=== PATIENT | male | born 1975 | race Caucasian/White ===

== ENCOUNTER 2023-05-06 22:06 | Outpatient (CLI) | payer OTHER, SELFPAY ==
[2023-05-07 18:12] LABS: Basophils # 0.1 K/mm3 (0-0.2); Basophils % 1.1 % (0.1-2.0); Eosinophils # 0.1 K/mm3 (0.0-0.4); Hemoglobin 15.3 g/dL (14.1-18.0); Lymphocytes # 0.8 K/mm3 (0.7-4.5); Lymphocytes % 9.8 % (10-50); Mean Corpuscular Hemoglobin 30.6 pg (27.0-31.2); Mean Corpuscular Volume 95.7 fl (80-94); Mean Platelet Volume 10.7 fl (7.4-10.4); Monocytes # 0.8 K/mm3 (0.1-1.0); Monocytes % 10.2 % (1.7-9.3); Neutrophils # 6.2 K/mm3 (1.8-7.8); Neutrophils % 77.9 % (37.0-80.0); Platelet Count 196 K/mm3 (142-424); Red Blood Count 5.02 M/mm3 (4.60-6.20); Red Cell Distribution Width 13.5 % (11.5-17.5); White Blood Count 7.9 K/mm3 (4.8-10.8)
[2023-05-07 18:28] LABS: Creatinine,Urine Random 114 mg/dL (Not Estab.); Microalbumin < 6.000 mg/L (0-16.7)
[2023-05-07 18:36] LABS: Alanine Aminotransferase 30 U/L (12-78); Albumin Level 3.9 g/dl (3.5-5.0); Albumin/Globulin Ratio 1.6 (1.1-1.8); Alkaline Phosphatase 93 U/L (38-126); Aspartate Amino Transferase 31 U/L (17-59); Bilirubin,Total 0.7 mg/dl (0.2-1.3); Blood Urea Nitrogen 8 mg/dl (9-20); Calcium 8.4 mg/dl (8.4-10.2); Carbon Dioxide 21 mmol/L (22.0-30.0); Chloride 106 mmol/L (98-107); Chol/HDL Ratio 4.3 (1-3.5); Cholesterol 124 mg/dl (140-200); Estimated Glomerular Filt Rate 91 ml/min (>60); GFR (African American) 110 ML/MIN (>60); Globulin 2.4 g/dL (1.3-3.2); Glucose 108 mg/dl (74-100); HDL Cholesterol 29 mg/dl (40-60); Sodium 136 mmol/L (136-145); Total Protein,Serum 6.3 g/dl (6.3-8.2); Triglycerides 134 mg/dl (30-150); VLDL Cholesterol 27 mg/dL (0-40)
[2023-05-07 18:42] LABS: Hemoglobin A1C 5.7 % (4.0-6.0)
[2023-05-07 18:47] LABS: Direct LDL Cholesterol 62.73 mg/dL (100-129)
[2023-05-07 18:57] LABS: 25-OH Vitamin D, Total 19.7 ng/mL (30-100)
[2023-05-07 19:09] LABS: Thyroid Stimulating Hormone 0.51 uIU/mL (0.465-4.68)
[2023-05-07 19:28] LABS: Vitamin B12 340 pg/mL (239-931)
== END 2023-05-06 23:59 ==
LOC: LAB.DROPOF 05-07 22:06
PROVIDERS: PCP Nurse Practitioner; Visit Provider Nurse Practitioner
DX: I25.10 Atherosclerotic heart disease of native coronary artery without angina pectoris (principal); I10 Essential (primary) hypertension; E78.5 Hyperlipidemia, unspecified; E55.9 Vitamin D deficiency, unspecified; E66.9 Obesity, unspecified; Z68.35 Body mass index [BMI] 35.0-35.9, adult; Z79.899 Other long term (current) drug therapy
CPT/HCPCS: 80053; 80061; 82043; 82306; 82570; 82607; 83036; 84443; 85025

== ENCOUNTER 2023-07-01 09:10 | Outpatient (CLI) | payer OTHER, SELFPAY ==
[2023-07-01 19:19] LABS: Basophils # 0.1 K/mm3 (0-0.2); Basophils % 0.9 % (0.1-2.0); Eosinophils # 0.3 K/mm3 (0.0-0.4); Eosinophils % 3.5 % (0.1-12.0); Hematocrit 47.2 % (42.0-52.0); Hemoglobin 15.2 g/dL (14.1-18.0); Lymphocytes # 1.8 K/mm3 (0.7-4.5); Lymphocytes % 25.9 % (10-50); Mean Corpuscular HGB Conc 32.1 g/dL (31.8-35.4); Mean Corpuscular Hemoglobin 30.7 pg (27.0-31.2); Mean Corpuscular Volume 95.7 fl (80-94); Mean Platelet Volume 10.2 fl (7.4-10.4); Monocytes # 0.4 K/mm3 (0.1-1.0); Neutrophils # 4.5 K/mm3 (1.8-7.8); Neutrophils % 63.6 % (37.0-80.0); Platelet Count 216 K/mm3 (142-424); Red Blood Count 4.93 M/mm3 (4.60-6.20); Red Cell Distribution Width 14.3 % (11.5-17.5); White Blood Count 7.1 K/mm3 (4.8-10.8)
[2023-07-01 20:22] LABS: Erythrocyte Sedimentation Rate 10 mm/hr (0-15)
[2023-07-03 13:14] LABS: Lyme Ab CIA Negative (Negative)
== END 2023-07-01 23:59 | disposition home or self-care (01) ==
LOC: LAB.DROPOF 07-02 09:10
PROVIDERS: PCP Nurse Practitioner; Visit Provider Nurse Practitioner
DX: L08.9 Local infection of the skin and subcutaneous tissue, unspecified (principal); S10.96XA Insect bite of unspecified part of neck, initial encounter; W57.XXXA Bitten or stung by nonvenomous insect and other nonvenomous arthropods, initial encounter
CPT/HCPCS: 85025; 85651; 86140; 86618

== ENCOUNTER 2023-12-24 09:00 | Outpatient (CLI) | payer OTHER, SELFPAY ==
[2023-12-27 14:24] LABS: H. pylori Stool Ag, EIA Negative (Negative)
== END 2023-12-24 23:59 | disposition home or self-care (01) ==
LOC: LAB.DROPOF 12-25 13:41
PROVIDERS: PCP Nurse Practitioner; Visit Provider Nurse Practitioner
DX: K21.9 Gastro-esophageal reflux disease without esophagitis (principal); R10.84 Generalized abdominal pain
CPT/HCPCS: 87338

== ENCOUNTER 2023-12-26 09:02 | Outpatient (CLI) | payer OTHER, SELFPAY ==
--- NOTE | 2023-12-26 09:21 | XR_ITS ---
PROCEDURE INFORMATION: Exam: XR Lumbosacral Spine Exam date and time: 12/26/2023 9:12 AM Age: 48 years old Clinical indication: Low back pain; Additional info: Left sided low back pain with left-sided sciatica TECHNIQUE: Imaging protocol: Radiologic exam of the lumbosacral spine. Views: 2 or 3 views. COMPARISON: No relevant prior studies available. FINDINGS: Bones/joints: There is no evidence of acute fracture.There is no evidence of malalignment or dislocation. Anterior osteophyte formation L1 through L4. Intervertebral disc space narrowing T11 through L 1 consistent with degenerative disc disease. Soft tissues: Unremarkable. IMPRESSION: 1. There is no evidence of acute fracture.There is no evidence of malalignment or dislocation. 2. Intervertebral disc space narrowing T11 through L 1 consistent with degenerative disc disease.
== END 2023-12-26 23:59 | disposition home or self-care (01) ==
PROVIDERS: PCP Nurse Practitioner; Visit Provider Nurse Practitioner
DX: M54.42 Lumbago with sciatica, left side (principal)
CPT/HCPCS: 72100

== ENCOUNTER 2024-03-14 10:59 | Outpatient (CLI) | payer OTHER, SELFPAY ==
[2024-03-14 18:58] LABS: Basophils # 0.1 K/mm3 (0-0.2); Basophils % 0.9 % (0.1-2.0); Eosinophils # 0.1 K/mm3 (0.0-0.4); Eosinophils % 1.8 % (0.1-12.0); Hematocrit 46.2 % (42.0-52.0); Hemoglobin 15.5 g/dL (14.1-18.0); Lymphocytes # 1.6 K/mm3 (0.7-4.5); Lymphocytes % 24.1 % (10-50); Mean Corpuscular HGB Conc 33.5 g/dL (31.8-35.4); Mean Corpuscular Hemoglobin 31.3 pg (27.0-31.2); Mean Corpuscular Volume 93.3 fl (80-94); Mean Platelet Volume 11.3 fl (7.4-10.4); Monocytes # 0.5 K/mm3 (0.1-1.0); Monocytes % 7.2 % (1.7-9.3); Neutrophils # 4.4 K/mm3 (1.8-7.8); Neutrophils % 65.7 % (37.0-80.0); Platelet Count 278 K/mm3 (142-424); Red Blood Count 4.95 M/mm3 (4.60-6.20); Red Cell Distribution Width 12.2 % (11.5-17.5); White Blood Count 6.6 K/mm3 (4.8-10.8)
[2024-03-14 19:20] LABS: Alanine Aminotransferase 34 U/L (12-78); Alkaline Phosphatase 60 U/L (38-126); Aspartate Amino Transferase 32 U/L (17-59); Bilirubin,Total 0.8 mg/dl (0.2-1.3); Blood Urea Nitrogen 11 mg/dl (9-20); Calcium 9.2 mg/dl (8.4-10.2); Chloride 106 mmol/L (98-107); Chol/HDL Ratio 7.3 (1-3.5); Cholesterol 204 mg/dl (140-200); Estimated Glomerular Filt Rate 91 ml/min (>60); GFR (African American) 110 ML/MIN (>60); Glucose 99 mg/dl (74-100); HDL Cholesterol 28 mg/dl (40-60); Potassium 4.7 mmoL/L (3.5-5.1); Sodium 139 mmol/L (136-145); Total Protein,Serum 6.9 g/dl (6.3-8.2); Triglycerides 99 mg/dl (30-150); VLDL Cholesterol 20 mg/dL (0-40)
[2024-03-14 19:31] LABS: Direct LDL Cholesterol 148.45 mg/dL (100-129)
[2024-03-14 19:34] LABS: 25-OH Vitamin D, Total 26.1 ng/mL (30-100)
[2024-03-14 19:49] LABS: Thyroid Stimulating Hormone 0.73 uIU/mL (0.465-4.68)
[2024-03-14 20:08] LABS: Vitamin B12 428 pg/mL (239-931)
[2024-03-14 20:19] LABS: Hemoglobin A1C 5.3 % (4.0-6.0)
[2024-03-14 20:52] LABS: Albumin Level 4.3 g/dl (3.5-5.0); Albumin/Globulin Ratio 1.7 (1.1-1.8); Globulin 2.6 g/dL (1.3-3.2)
[2024-03-14 21:11] LABS: Anion Gap 13.7 mEq/L (5-15); Carbon Dioxide 24 mmol/L (22.0-30.0)
[2024-03-14 21:25] LABS: Creatinine,Urine Random 126 mg/dL (Not Estab.)
== END 2024-03-14 23:59 | disposition home or self-care (01) ==
LOC: LAB.DROPOF 03-16 08:33
PROVIDERS: PCP Nurse Practitioner; Visit Provider Nurse Practitioner
DX: E78.5 Hyperlipidemia, unspecified (principal); I10 Essential (primary) hypertension; F17.210 Nicotine dependence, cigarettes, uncomplicated; E55.9 Vitamin D deficiency, unspecified; I25.10 Atherosclerotic heart disease of native coronary artery without angina pectoris; K21.9 Gastro-esophageal reflux disease without esophagitis; E66.9 Obesity, unspecified; Z68.34 Body mass index [BMI] 34.0-34.9, adult
CPT/HCPCS: 80053; 80061; 82043; 82306; 82570; 82607; 83036; 84443; 85025

== ENCOUNTER 2024-03-29 13:35 | Outpatient (CLI) | payer OTHER, SELFPAY ==
--- NOTE | 2024-03-29 13:36 | MR_ITS ---
FINAL REPORT CLINICAL HISTORY: lumbar and thoracic degenerative changes, LBP lower back pain to hips pt stated locks up walking long periods and lifting anything makes it worse x few years COMPARISON: None FINDINGS: Multiplanar MR imaging of the lumbar spine was performed without contrast. On the sagittal T2-weighted images, there is abnormal decreased signal at the L3-4 disc level. The vertebrae are of normal height. The vertebral alignment is normal. T12-L1: There is no significant canal stenosis or neuroforaminal narrowing. L1-2: There is no significant canal stenosis or neural foraminal narrowing. L2-3: There is no significant canal stenosis or neural foraminal narrowing. L3-4: Mild to moderate diffuse disc bulge. Mild to moderate bilateral neuroforaminal narrowing. L4-5: Mild diffuse disc bulge. Mild bilateral neuroforaminal narrowing. L5-S1: There is no significant canal stenosis or neural foraminal narrowing. IMPRESSION: Mild to moderate disc bulge and bilateral neuroforaminal narrowing at L3-4. Reviewed, Interpreted and Dictated by Davonte Zhou MD Transcribed by Carmencita Mtz Authenticated and [facility]
== END 2024-03-29 23:59 | disposition home or self-care (01) ==
LOC: RAD 13:36
PROVIDERS: PCP Nurse Practitioner; Visit Provider Nurse Practitioner
DX: M51.369 Other intervertebral disc degeneration, lumbar region without mention of lumbar back pain or lower extremity pain (principal); M51.34 Other intervertebral disc degeneration, thoracic region
CPT/HCPCS: 72148

== ENCOUNTER 2024-05-04 08:30 | Outpatient (POV) | payer OTHER, SELFPAY ==
[2024-05-04 08:53] VITALS: BP 160/87; PULSE 83; RESP 18; O2SAT 98; BMI 34.7
--- NOTE | 2024-05-04 09:41 | A.OFFVIS_ITS ---
HPI Data of Consult Patient: new to practice Consult date: 05/04/24 Requesting Physician: Dorene Richards APRN Primary Care Provider: Referral Provider, MD Consult Narrative Reason for consult: Low back pain, bilateral hip pain, leg numbness tingling History of present illness: Mr. Cardoza is a 48 year old male who presents today as a new patient. He is a referral from [facility]. Today he rates his pain a 10 out of 10. Patient states he has had chronic low back pain that does radiate into his hips and upper legs with numbness for longer than 10 years. He states initially a lot of his pain is related to an injury he suffered back in 2007 where a industrial mower flipped over onto himself. Patient states that he has had issues ever since. He describes this pain as a sharp sensation with the numbness into his legs. Patient states prolonged positions such as sitting or standing seem to make everything worse. He does state that the only thing that seems to make it a little bit better is laying in the position. He has tried oral medication, heat and ice, topicals, multiple muscle relaxer such as Flexeril and Robaxin with minimal relief. He states that he did see a surgeon who was recommending physical therapy however he has not gotten this officially ordered. Patient states he saw someone at [facility]. Patient is interested in any help we may be able to provide. He denies any prior back surgery or injection history. His Maxime has been reviewed. CC: Dorene Richards APRN [facility] Disclaimer: The information contained in this section may have been updated after the patient was seen, as this information can be updated by other users. Medical History (Updated 05/04/24 @ 09:44 by Dorene Richards APRN) Thoracic degenerative disc disease Bilateral low back pain with bilateral sciatica Lumbar degenerative disc disease History of seizure Left-sided low back pain with left-sided sciatica Generalized abdominal pain GERD (gastroesophageal reflux disease) Infected tick bite of neck Vitamin D deficiency Obesity Essential hypertension SOBOE (shortness of breath on exertion) Chest pain CAD (coronary artery disease) Chronic diarrhea Family history of colorectal cancer Hx of traumatic brain injury History of seizure disorder Hyperlipidemia Hypertension Surgical History Hx of cholecystectomy Family History Other Cancer Coronary artery disease Diabetes Hyperlipidemia Hypertension Social History (Updated 05/04/24 @ 08:58 by Lyly Ghotra RN) Smoking Status: Current every day smoker tobacco type: cigarettes alcohol intake: former current occupational status: employed Travel in the last 8 weeks: None Review of Systems Review of Systems Review of systems:: pertinent systems reviewed and negative unless documented below Review of systems (narrative): Review of Systems: General: No recent weight changes, no fever, no sleep disturbances Respiratory: No cough, no shortness of air, no recurring pulmonary infections Cardiovascular/peripheral vascular: No chest pain, no palpitations, no edema, no shortness of breath Gastrointestinal: No new onset incontinence, normal bowel movements reported Genitourinary: No new onset incontinence Musculoskeletal: Low back pain, Bilateral hip pain, upper leg numbness tingling Psychiatric: [Normal mood/affect] Neurological: [Denies weakness in extremities], [denies balance issues] Meds Home Medications and Allergies Home Medications ?Medication ?Instructions ?Recorded ?Confirmed ?Type albuterol sulfate 90 mcg/actuation 2 puff inhalation Q4-6H PRN 03/14/24 05/04/24 Rx aerosol inhaler shortness of breath or wheezing #8.5 grams amlodipine 5 mg tablet 5 mg PO DAILY #90 tabs 03/14/24 05/04/24 Rx cholecalciferol (vitamin D3) 125 125 mcg PO DAILY #30 tabs 03/14/24 05/04/24 Rx mcg (5,000 unit) tablet clonidine HCl 0.1 mg tablet 0.1 mg PO DAILY #180 tabs 03/14/24 05/04/24 Rx diclofenac sodium 75 mg 75 mg PO BID #60 tabs 03/14/24 05/04/24 Rx tablet,delayed release hyoscyamine sulfate 0.125 mg tablet 0.125 mg PO QID PRN diarrhea or 03/14/24 05/04/24 Rx abdominal cramping #90 tabs levetiracetam 500 mg tablet 500 mg PO BID #180 tabs 03/14/24 05/04/24 Rx methocarbamol 750 mg tablet 750 mg PO QID #120 tabs 03/14/24 05/04/24 Rx metoprolol succinate 100 mg 100 mg PO DAILY #90 tabs 03/14/24 05/04/24 Rx tablet,extended release 24 hr omeprazole 40 mg capsule,delayed 40 mg PO DAILY #90 caps 03/14/24 05/04/24 Rx release atorvastatin 40 mg tablet 40 mg PO DAILY #90 tabs 03/22/24 05/04/24 Rx cefdinir 300 mg capsule 300 mg PO BID 10 days #20 caps 04/15/24 05/04/24 Rx New Prescriptions to Start Prescriptions: Allergies Allergy/AdvReac Type Severity Reaction Status Date / Time codeine Allergy Mild Verified 03/14/24 09:55 Penicillins Allergy Mild Verified 03/14/24 09:55 Objective Vital signs: Pulse Resp BP Pulse Ox O2 Del Method 83 18 160/87 H 98 Room Air 05/04/24 08:53 05/04/24 08:53 05/04/24 08:53 05/04/24 08:53 05/04/24 08:53 Narrative: Physical Exam: General: Alert and oriented x3, no acute distress, pleasant and cooperative Lungs: Respirations even and unlabored, symmetrical chest expansion Eyes: PERRL Musculoskeletal: Flexion and extension of lumbar [spine] somewhat guarded secondary to pain, [antalgic gait noted] point tenderness along bilateral SIs w ith positive bilateral Loreto's, Francisco's, Gaenslen's, compression and distraction exam Neurological: Speech clear, no gross sensory deficit Additional findings Additional findings: FINDINGS: Multiplanar MR imaging of the lumbar spine was performed without contrast. On the sagittal T2-weighted images, there is abnormal decreased signal at the L3-4 disc level. The vertebrae are of normal height. The vertebral alignment is normal. T12-L1: There is no significant canal stenosis or neuroforaminal narrowing. L1-2: There is no significant canal stenosis or neural foraminal narrowing. L2-3: There is no significant canal stenosis or neural foraminal narrowing. L3-4: Mild to moderate diffuse disc bulge. Mild to moderate bilateral neuroforaminal narrowing. L4-5: Mild diffuse disc bulge. Mild bilateral neuroforaminal narrowing. L5-S1: There is no significant canal stenosis or neural foraminal narrowing. IMPRESSION: Mild to moderate disc bulge and bilateral neuroforaminal narrowing at L3-4. Reviewed, Interpreted and Dictated by Davonte hZou MD Transcribed by Carmencita Mtz Authenticated and [facility] Assessment and Plan *Assessment and plan (1) Bilateral low back pain with bilateral sciatica: Status: Acute Category: Medical Code(s): M54.42 - Lumbago with sciatica, left side; M54.41 - Lumbago with sciatica, right side (2) Lumbar degenerative disc disease: Status: Acute Category: Medical Code(s): M51.369 - Other intervertebral disc degeneration, lumbar region without mention of lumbar back pain or lower extremity pain (3) Bilateral sacroiliitis: Status: Acute Category: Medical Code(s): M46.1 - Sacroiliitis, not elsewhere classified Plan Patient is experiencing worsening pain along the low back and bilateral hips. They did have limited range of motion of the lumbar spine along with point tenderness along bilateral SI joints and a positive bilateral Loreto's, Francisco's, Gaenslen's, compression and distraction exam. I did discuss with the patient that I do believe they would benefit from bilateral SI injections. Risk and benefits were discussed with the patient and and he does state that he has a issue with needles and does not necessarily want to proceed forward with this option at this time. Patient has tried and failed conservative therapy including continued at home stretching exercise for longer than 12 weeks. I will order the patient a compounded cream and order physical therapy. Patient will return to clinic in 1 month. Patient has been instructed to contact the clinic with any concerns before the next appointment. Dr. Cazares has reviewed this note and agrees with this plan of care. This note was dictated using voice recognition software and make contain errors or omissions. All injections are used with Lidocaine or Bupivacaine and Depo Medrol.
== END 2024-05-04 23:59 | disposition home or self-care (01) ==
PROVIDERS: Visit Provider Nurse Practitioner Family
DX: M54.42 Lumbago with sciatica, left side (principal); M54.41 Lumbago with sciatica, right side; M51.369 Other intervertebral disc degeneration, lumbar region without mention of lumbar back pain or lower extremity pain; M46.1 Sacroiliitis, not elsewhere classified; F17.210 Nicotine dependence, cigarettes, uncomplicated
CPT/HCPCS: 99202; G0463

== ENCOUNTER 2024-06-20 12:25 | Outpatient (CLI) | payer OTHER, SELFPAY ==
[2024-06-20 20:11] LABS: Albumin Level 4.2 g/dl (3.5-5.0); Chloride 109 mmol/L (98-107); Potassium 4.5 mmoL/L (3.5-5.1); Sodium 140 mmol/L (136-145)
[2024-06-20 20:13] LABS: Blood Urea Nitrogen 10 mg/dl (9-20); Estimated Glomerular Filt Rate 104 ml/min (>60); GFR (African American) 126 ML/MIN (>60)
[2024-06-20 20:14] LABS: Alanine Aminotransferase 37 U/L (12-78); Albumin/Globulin Ratio 1.6 (1.1-1.8); Alkaline Phosphatase 67 U/L (38-126); Anion Gap 10.5 mEq/L (5-15); Aspartate Amino Transferase 27 U/L (17-59); Bilirubin,Total 0.5 mg/dl (0.2-1.3); Calcium 8.8 mg/dl (8.4-10.2); Carbon Dioxide 25 mmol/L (22.0-30.0); Chol/HDL Ratio 4.4 (1-3.5); Cholesterol 239 mg/dl (140-200); Globulin 2.6 g/dL (1.3-3.2); Glucose 90 mg/dl (74-100); HDL Cholesterol 54 mg/dl (40-60); Total Protein,Serum 6.8 g/dl (6.3-8.2); Triglycerides 161 mg/dl (30-150); VLDL Cholesterol 32 mg/dL (0-40)
[2024-06-20 20:25] LABS: Direct LDL Cholesterol 135.27 mg/dL (100-129)
[2024-06-20 20:46] LABS: Thyroid Stimulating Hormone 1.95 uIU/mL (0.465-4.68)
[2024-06-20 21:11] LABS: Hepatitis C Ab Qual. W/ RFX NEGATIVE (Negative)
[2024-06-20 23:11] LABS: 25-OH Vitamin D, Total 17.4 ng/mL (30-100)
[2024-06-20 23:19] LABS: Hemoglobin A1C 5.2 % (4.0-6.0)
[2024-06-23 10:53] LABS: HIV Combo NEGATIVE (Negative)
== END 2024-06-20 23:59 | disposition home or self-care (01) ==
LOC: LAB.DROPOF 06-21 13:04
PROVIDERS: PCP Nurse Practitioner; Visit Provider Nurse Practitioner
DX: I10 Essential (primary) hypertension (principal); E78.5 Hyperlipidemia, unspecified; E55.9 Vitamin D deficiency, unspecified; Z13.0 Encounter for screening for diseases of the blood and blood-forming organs and certain disorders involving the immune mechanism
CPT/HCPCS: 80053; 80061; 82306; 83036; 84443; 86803; 87389

== ENCOUNTER 2024-08-04 13:58 | Outpatient (CLI) | payer OTHER, SELFPAY ==
[2024-08-04 19:42] LABS: Anion Gap 7.9 mEq/L (5-15); Blood Urea Nitrogen 10 mg/dl (9-20); Calcium 9.1 mg/dl (8.4-10.2); Carbon Dioxide 29 mmol/L (22.0-30.0); Chloride 103 mmol/L (98-107); Estimated Glomerular Filt Rate 91 ml/min (>60); GFR (African American) 110 ML/MIN (>60); Glucose 92 mg/dl (74-100); Potassium 3.9 mmoL/L (3.5-5.1); Sodium 136 mmol/L (136-145)
[2024-08-04 20:06] LABS: Hemoglobin A1C 5.4 % (4.0-6.0)
[2024-08-04 20:12] LABS: Prostate Specific Ag Screen 0.6 ng/ml (0.0-4.0)
--- OUTSIDE RECORDS SUMMARY | 2024-08-05 14:37 | XMS_ITS | Clinical Summary ---
Author Organization [employer] [facility] Address [address] [place] [id number] Phone Care Team Providers Care Color Repairer Name Role Phone Unavailable Unavailable Conditions or Problems No information available. Medications No information available. Medications Administered No information available. Allergies, Adverse Reactions, Alerts No information available. Results No information available. Plan of Care No information available. Procedures No information available. Vital Signs No information available. Immunizations No information available. Advance Directives No information available.
--- OUTSIDE RECORDS SUMMARY | 2024-08-05 14:37 | XMS_ITS | Clinical Summary ---
Author Organization [facility] Address [address] [place] [address] Phone Care Team Providers Care Supervisor Shearing Name Role Phone Cherri Mejia MA [phone] Conditions or Problems Problem Name Problem Code Onset Date Status Entry Date Provider Comment Standard Description Annotate LOW BACK PAIN (LBP) [id number] (SNOMED CT) Active Cherri Mejia MA Low back pain Medications Medication Instructions Start Date Stop Date Generic Name NDC Provider Observed no known medication s at Medications Administered No information available. Allergies, Adverse Reactions, Alerts Allergy Name Reaction Description Start Date Severity Statu s Provider CODEINE Critical Cherri perez MA PENICILLIN Critical Cherri mcmillan MA Results No information available. Plan of Care No information available. Procedures No information available. Vital Signs Date Name Value Unit Description BMI (Body Mass Index) 34.55 kg/m2 Bod y Mass Index (Ratio) Height 69 [in_us] height E&M Weight Measured 234 [lb_av] weight E& M Weight Measured 234 [lb_av] weight E& M Immunizations No information available. Advance Directives No information available.
--- OUTSIDE RECORDS SUMMARY | 2024-08-05 14:37 | XMS_ITS | Clinical Summary ---
Author Organization [facility] Address [address] [place] [address] Phone Care Team Providers Care Claims Customer Service Representative Name Role Phone LuxLashae Phillip BLAKE Primary Care Provider [phone] Allergies Active Allergy Reactions Criticality Noted Date Comments Codeine Nausea And Vomiting, Other (See Comments) Low 09/14/2009 agitation Penicillins Nausea And Vomiting, Other (See Comments) Low 09/14/2009 hallucinations Medications * This document contains information received from the source organization and may not represent a complete record from that organization. aspirin 81 mg Oral Tablet, Chewable Take 81 mg by mouth daily. Active omeprazole (PRILOSEC) 40 mg Oral Capsule, Delayed Release(E.C.)Socorro cations:Atypical chest pain Take 1 Cap by mouth daily. 30 Cap 2 1 Active rimegepant (NURTEC ODT) 75 mg Oral Tablet, Rapid DissolveIndicatio ns:Migraine without aura and without status migrainosus, not intractable Take 1 Tablet by mouth as needed. 10 Tablet 3 Active rOPINIRole (REQUIP) 1 mg Oral TabletIndications :Muscle cramping Take 1 Tablet by mouth nightly. 30 Tablet 11 3 Active rimegepant (NURTEC ODT) 75 mg Oral Tablet, Rapid Dissolve Oral by mouth for migraine 8 Tablet 3 Active ipratropium (ATROVENT) 21 mcg (0.03 %) Nasl [place], Non-AerosolIndica tions:COVID-19 virus infection 2 SPRAYS BY NASAL ROUTE 3 TIMES DAILY 30 mL 2 3 Active cyclobenzaprine (FLEXERIL) 10 mg Oral TabletIndications :Muscle spasm,Strain of lumbar region, subsequent encounter TAKE 1 TABLET BY MOUTH EVERY 8 HOURS NEEDED FOR MUSCLE SPASMS FOR UP TO 30 DAYS 60 Tablet 3 Active levETIRAcetam (KEPPRA) 500 mg Oral TabletIndications :Nonintractable epilepsy without status epilepticus, unspecified epilepsy type (HCC) TAKE 1 TABLET BY MOUTH EVERY 12 HOURS 60 Tablet 3 Active hydrOXYzine (ATARAX) 25 mg Oral TabletIndications :Insomnia, persistent TAKE 1 TABLET BY MOUTH NIGHTLY NEEDED (SLEEP). 30 Tablet 2 4 Active ergocalciferol (DRISDOL) 1,250 mcg (50,000 unit) Oral CapsuleIndication s:Vitamin D deficiency TAKE 1 CAPSULE BY MOUTH ONE TIME PER WEEK 12 Capsule 4 Active amLODIPine (NORVASC) 5 mg Oral TabletIndications :Primary hypertension Take 1 Tablet by mouth daily. 90 Tablet 1 4 Active metoprolol succinate ER (TOPROL-XL) 100 mg Oral Tablet Sustained Release 24 hrIndications:DARCY D (arteriosclerotic heart disease),Dyslipid emia,Family history of premature CAD Take 1 Tablet by mouth daily. 90 Tablet 1 4 Active cloNIDine (CATAPRES) 0.1 mg Oral TabletIndications :Primary hypertension Take 1 Tablet by mouth 3 times daily as needed for High Blood Pressure (take if BP >160/80). 90 Tablet 4 Active atorvastatin (LIPITOR) 40 mg Oral Tablet TAKE 1 TABLET BY MOUTH EVERYDAY AT BEDTIME 90 Tablet 4 Active Active Problems Problem Noted Date Diagnosed Date Chest pain, unspecified type 12/05/2022 Migraine without aura and wi thout status migrainosus, not intractable 10/06/2020 Overview (03/21/2022): On BB with PRN nurtec use. Assessment & Plan (10/06/2020 1:17 PM EDT): Counseled to stop triptan. Did well with Spotlimetec so will work on PA. Vitamin D deficiency 10/06/2020 Overview (10/01/2022): off replacement. Assessment & Plan (05/30/2021 4:16 PM EDT): Not on replacement. Cigarette nicotine dependence in remission 10/06 Overview (05/30/2021): Has cut way back Elevated vitamin B12 level 10/06/2020 Family history of premature CAD 04/21/2020 Moderate major depression, single episode 2017 Overview (03/21/2022): Off meds currently. Doing well Dyslipidemia 07/22/2017 Overview (03/21/2022): Lab Results Component Value Date CHOLESTEROL 100 05/30/2021 CHOLESTEROL 88 10/02/2020 CHOLESTEROL 169 04/21/2020 CHOLESTEROL 170 04/21/2020 Lab Results Component Value Date HDL 32 (L) 05/30/2021 HDL 31 (L) 10/02/2020 HDL 36 (L) 04/21/2020 HDL 36 (L) 04/21/2020 Lab Results Component Value Date LDLCALC 51 05/30/2021 LDLCALC 44 10/02/2020 LDLCALC 114 (H) 04/21/2020 LDLCALC 115 (H) 04/21/2020 Lab Results Component Value Date TRIG 83 05/30/2021 TRIG 64 10/02/2020 TRIG 94 04/21/2020 TRIG 93 04/21/2020 No results found for: CHOLHDL On statin ASHD (arteriosclerotic heart disease) 05/04/2017 Overview (04/25/2020): Angiogram 04/21/20 - LAD 45% stenosed. On ASA. Restart statin. Continue lisinopril Need weight loss and smoking cessation. 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 Has seen neuro in past. On keppra Assessment & Plan (05/02/2020 10:55 AM EST): Given contact information to schedule 72hr EEG. Given seizure precautions. He is not driving. Assessment & Plan (04/25/2020 3:28 PM EST): Question if pseudoseizure playing a role in current symptoms? His neuro workup was normal. Will monitor at this time. Primary hypertension 03/30/2017 Overview (10/01/2022): BP Readings from Last 3 Encounters: 10/01/22 (!) 146/88 03/21/22 112/72 05/30/21 132/78 Continue Toprol, restart norvasc Clonidine prn Facial droop Assessment & Plan (04/25/2020 3:30 PM EST): Don't appreciate on exam. Had extensive neuro workup including CTA, MRI/MRA and was normal 04/2020 Does have some jaw pain to touch. Not sure if he is having dental problem? multiple dental caries. Will treat with oral antibiotics as well as a steroid Recommend dental follow-up Conversion disorder with attacks or seizures Resolved Problems Problem Noted Date Diagnosed Date Resolved Date BMI 28.0-28.9,adult 03/21/2022 03/21/19 23 Elevated troponin 09/19/2020 05/30/2021 Chest pain 09/19/2020 05/30/2021 Overview (09/19/2020): Added automatically from request for surgery [id number] Acute chest pain 04/20/2020 04/25/2020 Unstable angina 04/20/2020 04/25/2020 Overview (04/21/2020): Added automatically from request for surgery [id number] Cholecystitis 05/04/2017 05/04/2017 Pneumonia of both lower lobe s due to infectious organism 04/04/2017 07/22/2017 Calculus of gallbladder with out cholecystitis without obstruction 04/04/2017 05/02/2020 Overview (05/04/2017): FINDINGS: 04/2017 Gallbladder: Multiple stones. No inflammatory change. Gamez's sign: Negative. Liver: Normal echogenicity. No mass. Common bile duct: 3 mm. Pancreas: Visualized portions are normal. Other: No significant additional finding. IMPRESSION: Multiple gallstones. No evidence of cholecystitis. Precordial pain 03/30/2017 04/25/2020 Acute pain of left shoulder 03/30/2017 07/14/2017 Angina at rest 04/25/2020 Immunizations Immunization Administration Dates Next Due Influenza Vaccine Quadrivalent PF 12/09/2022 Gael SARS-CoV-2 Vaccine 08/09/2020 Moderna SARS-CoV-2 Booster V accine 18+ Yrs (Light Blue Border) 05/30/2021 Pfizer SARS-CoV-2 Bivalent B ooster Vaccine 12+ Years (Zuniga border) 03/21/2022 Pneumococcal Polysaccharide 23 Valent 04/01/2017 Surgical History Surgery Date Site/Laterality Comments UPPER GASTROINTESTINAL ENDOSCOPY 04/03/2017 N/A ESOPHAGOGASTRODUODENOSCOPY with gastric and GE junction biopsies ; Surgeon: George Montes MD; Location: [facility]; Service: Endoscopy CHOLECYSTECTOMY 05/15/2017 N/A DaVinci cholecystectomy with Firefly; Surgeon: Chico Singh MD; Location: [facility]; Service: Robotics Medical History Medical History Date Comments Hypertension Foot injury crushed Left fausto t dropped engine block onto Esophagitis determined by endoscopy 04/03/2017 Duodenitis 04/03/2017 Heartburn Pneumonia 2018 Seizures (HCC) noneplileptic se izures/pseudoseizures; had EEG 2018 Family History Medical History Relation Name Comments Other Brother 1 Rajesh twin Diabetes Brother 2 [place] No Known Problems Father Cancer Maternal Aunt 1 Cancer Maternal Aunt 2 Diabetes Maternal Grandmother COPD Mother hilda sky High Blood Pressure Mother hilda sky High Cholesterol Mother hilda sky Cancer Other Heart Disease Sister 2 Anesth Problems Neg Hx Relation Name Status Comments Brother 1 Rajesh Brother 2 [place] Alive Father Maternal Aunt 1 Maternal Aunt 2 Maternal Grandfather Maternal Grandmother Mother hilda sky Alive Other 1st cousin had pancreatic cancer Paternal Grandfather Paternal Grandmother Sister 1 Sister 2 Alive Social History Tobacco Use Types Packs/Day Years Used Date Smoking Tobacco: Every Day Cigarettes 0.2 38 Started: 03/02/1984; Last attempted to quit: 03/02/2022 Smokeless Tobacco: Current Snuff Tobacco Cessation:Ready to Q uit: Not Asked; Counseling Given: Not Answered Alcohol Use Standard Drinks/Week Comments No 0 (1 standard drink = 0.6 oz pur e alcohol) occasional beer Overall Financial Resource Strain (CARDIA) Answe r Date Recorded How hard is it for you to pa y for the very basics like food, housing, medical care, and heating? Not very hard 09/21/2020 [facility] - Occupational Stress Questionnaire Answer Date Recorded Do you feel stress - tense, restless, nervous, or anxious, or unable to sleep at night because your mind is troubled all the time - these days? To some extent 09/21/2020 Exercise Vital Sign Answer Date Recorde d On average, how many days pe r week do you engage in moderate to strenuous exercise (like a brisk walk)? 4 days 09/21/2020 On average, how many minutes do you engage in exercise at this level? 30 min 09/21/2020 Hunger Vital Sign Answer Date Recorded Within the past 12 months, y ou worried that your food would run out before you got the money to buy more. Never true 09/22/19 21 Within the past 12 months, t he food you bought just didn't last and you didn't have money to get more. Never true 09/21/2020 PRAPARE - Transportation Answer Date Re corded In the past 12 months, has l ack of transportation kept you from medical appointments or from getting medications? No 08/31 In the past 12 months, has l ack of transportation kept you from meetings, work, or from getting things needed for daily living? No 09/21/2020 Sex and Gender Information Value Date Recorded Sex Assigned at Not on file Legal Sex Male 3:54 AM EDT Gender Identity Not on file Sexual Orientation Not on file Obstetrics History Last Filed Vital Signs Vital Sign Reading Time Taken Comments Blood Pressure 140/93 02/04/2024 12:49 PM EST Pulse 98 02/04/2024 11:20 AM EST Temperature 36.8 C (98.2 F) 02/04/2024 11:30 AM EST Respiratory Rate 20 02/04/2024 11:20 AM EST Oxygen Saturation 98% 02/04/2024 11:20 AM EST Inhaled Oxygen Concentration - - Weight 106.6 kg (235 lb) 02/04/2024 11:20 AM EST Height 175.3 cm (5' 9 ) 02/04/2024 11:20 AM EST Body Mass Index 34.7 02/04/2024 11:20 AM EST Plan of Treatment Health Maintenance Due Date Last Done Comments DTaP/TDaP/Td (1 - Tdap) 1996 Hepatitis B Vaccine (1 of 3 - 19+ 3-dose series) 1996 Pneumococcal Vaccine 0-49 (2 of 2 - PCV) 04/01/2018 04/01/2017 Cologuard 2022 Colon Cancer Screening 2022 Colonoscopy 2022 FIT 2022 Sigmoidoscopy 2022 Virtual Colonography 2022 Annual Wellness Exam 03/21/2023 03/21/2022 COVID-19 Vaccine (3 - 2023-2 5 season) 2023 03/21/2022, 05/30/2021 Influenza Vaccine (Season Ended) 2024 12/09/2022, 04/07/2017 (Postponed), 05/16/2016 (Declined) Meningococcal B Vaccine Aged Out No l onger eligible based on patient's age to complete this topic Goals Goal Patient Goal Type Associated Problems Recent Progress Patient-Stated? Author Blood Pressure < 140/90 Blood Pressure 140/93(2023 12:49 PM EST) No Yani Dickerson CCMA Maintain a healthy diet, exercise regularly and maintain an ideal body weight General No Catina Haq, HAYDEN Stay Tobacco Free Lifestyle No Catina Haq APRN Insurance [facility] [place] MDR Member Subscriber Plan / Payer (Ef fective 2020-Present) Name:Romeo Sky Relation to Subscriber:Self Name:Romeo Sky Payer ID:Not on file Group ID:[id number] Type:Not on file Address: [address] [place] Advance Directives For more information, please contact: [phone] * Full Code (Latest Code Status on File) Date Activated Date Inactivated Comments 12/05/2022 10:15 PM 12/06/2022 7:44 PM * Full Code Date Activated Date Inactivated Comments 12/05/2022 9:21 PM 12/05/2022 10:15 PM * Full Code Date Activated Date Inactivated Comments 04/20/2020 6:42 PM 04/23/2020 9:17 PM * Full Code Date Activated Date Inactivated Comments 03/31/2017 6:29 AM 04/04/2017 10:44 PM * Full Code Date Activated Date Inactivated Comments 03/30/2017 7:10 PM 03/31/2017 6:29 AM Care Teams Claims Customer Service Representative Relationship Specialty Start Date End Date Lashae Wasserman, HAYDEN [address] [place] [address] PCP - General Nurse Practitioner 08/21/23
== END 2024-08-04 23:59 | disposition home or self-care (01) ==
LOC: LAB.DROPOF 08-05 14:34
PROVIDERS: PCP Nurse Practitioner; Visit Provider Nurse Practitioner
DX: Z12.5 Encounter for screening for malignant neoplasm of prostate (principal); R73.9 Hyperglycemia, unspecified
CPT/HCPCS: 80048; 83036; G0103